=== PATIENT | male | born 1960 | race Caucasian/White ===

== ENCOUNTER 2024-10-26 20:02 | Inpatient (IN) | payer OTHER ==
[~2024-10-26] VITALS: Ht 175.3 cm; Wt 79.6 kg
[2024-10-26 20:28] LABS: BASOPHILS ABSOLUTE AUTO 0.10 K/mm3 (0.00-0.23); BASOPHILS PERCENT AUTO 1 % (0-2); EOSINOPHILS ABSOLUTE AUTO 0.03 K/mm3 (0.00-0.68); EOSINOPHILS PERCENT AUTO 0 % (0-6); Hematocrit 43.6 % (37.0-53.0); Hemoglobin 14.9 g/dL (13.5-17.5); IMMATURE GRAN ABSOLUTE AUTO 0.19 K/mm3 (0.00-0.10); IMMATURE GRAN PERCENT AUTO 1 % (0-1); LYMPHOCYTES ABSOLUTE AUTO 0.87 K/mm3 (0.84-5.20); LYMPHOCYTES PERCENT AUTO 6 % (21-46); MONOCYTES ABSOLUTE AUTO 1.52 K/mm3 (0.16-1.47); MONOCYTES PERCENT AUTO 10 % (4-13); Mean Corpuscular HGB Conc 34.2 g/dL (31.5-36.5); Mean Corpuscular Volume 85 fL (80-100); NEUTROPHILS ABSOLUTE AUTO 13.07 K/mm3 (1.96-9.15); NEUTROPHILS PERCENT AUTO 83 % (41-73); NRBC ABSOLUTE 0.00 K/mm3 (0.00-0.02); NRBC Auto 0.0 /100 WBC (0.0-0.2); Platelet Count 260 K/mm3 (150-400); RDW Coefficient Variation 12.6 % (11.7-14.2); RDW Standard Deviation 39.5 fL (35.1-46.3)
[2024-10-26 20:54] LABS: Alanine Aminotransfer (ALT/SGP 42.0 U/L (12-78); Albumin, Blood 2.6 g/dL (3.4-5.0); Albumin/Globulin Ratio 0.5 (0.8-1.8); Anion Gap 14.0 mmol/L (3-11); Aspartate Aminotrans (AST/SGOT 30.0 U/L (12-37); Bilirubin, Total 0.4 mg/dL (0.1-1.0); Blood Urea Nitrogen 14.0 mg/dL (8-24); CO2, Blood 21.0 mmol/L (21-32); Calcium, Blood 8.4 mg/dL (8.5-10.1); Chloride, Blood 93.0 mmol/L (98-108); Creatinine, Blood 0.78 mg/dL (0.60-1.20); Globulin, Blood 4.8 g/dL (2.2-4.0); Glucose, Blood 352.0 mg/dL (70-99); Potassium, Blood 4.1 mmol/L (3.5-5.5); Sodium, Blood 124.0 mmol/L (136-145); Total Protein, Blood 7.4 g/dL (6.4-8.2)
[2024-10-26] MEDS ORDERED: CefTRIAXone Sodium 1,000 MG in NS 100 ML IV ONE (22:25)
[2024-10-26] MEDS ORDERED: Insulin Glargine-Yfgn 100 Unit/mL 3 ML SYR SC SCH (23:00)
[2024-10-26] MEDS ORDERED: NS 1,000 ML IV SCH (23:00)
[2024-10-26] MEDS ORDERED: Ondansetron HCl 2 MG / ML 2ML Vial IV PRN (23:00)
[2024-10-26] MEDS ORDERED: Ketorolac Tromethamine 15mg Vial IV PRN (23:10)
[2024-10-26] MEDS ORDERED: NS 1,000 ML IV ONE (23:41)
[2024-10-26 23:44] LABS: U Amphetamine Screen Not Detected; U Barbituate Screen Not Detected; U Benzodiazapine Screen Not Detected; U Buprenorphine Screen Not Detected; U Cannabinoids Screen DETECTED; U Cocaine Screen Not Detected; U Methadone Screen Not Detected; U Methamphetamine Screen Not Detected; U Opiates Screen Not Detected; U Oxycodone Screen Not Detected; U Phencyclidine Screen Not Detected
[2024-10-27] VITALS (7 sets, daily range): BP systolic 121–142; BP diastolic 86–100
[2024-10-27] MEDS ORDERED: CeFAZolin Sodium 1,000 MG in NS 50 ML IV SCH
[2024-10-27] MEDS ORDERED: Aspir 8181 MG PO (00:55)
--- NOTE | 2024-10-27 01:22 | NUR ---
ADMIT SUMMARY RECEIVED REPORT FROM GEMINI IN ER. PT ARRIVED TO ROOM 347 AT 0042 AND WAS ABLE TO TRANSFER TO BED. WEIGHT AND PICTURES OF WOUNDS OBTAINED. WARM BLANKET APPLIED AND PAIN MEDS GIVEN PER EMAR PER PT REQUEST. TELE APPLIED AND PT CURRENTLY IN AFIB AT 94. INSULIN GIVEN PER ORDERS. NS INFUSING AT 125 ML PER HOUR. PT RESTING COMFORTABLY IN HOSPITAL BED IN LOWEST POSITION WITH RAILS X2 AND CALL LIGHT WITHIN REACH.
--- NOTE | 2024-10-27 04:13 | NUR ---
SHIFT SUMMARY PT ADMITTED WITH SIRS. A&OX4. ABLE TO MAKE NEEDS KNOWN. ARRIVED TO FLOOR AND ORIENTED TO ROOM AND STAFF. IV INFUSING NS @ 125 MLS AN HOUR. REPORTS PAIN ALL OVER BODY. WARM BLANKET APPLIED AND PT MEDICATED PER EMAR. PT IS SBA WITH TRANSFERS BUT USES THE URINAL FOR COMFORT AND SAFEY. ON TELE WITH AFIB @ 94. DENIES CHEST PAIN OR SOB. TROPONIN REMAINS STABLE. PT CURRENTLY RESTING IN BED AT LOWEST POSITION WITH RAILS X 2 AND CALL LIGHT WITHIN REACH.
[2024-10-27 05:59] LABS: BASOPHILS ABSOLUTE AUTO 0.06 K/mm3 (0.00-0.23); BASOPHILS PERCENT AUTO 0 % (0-2); EOSINOPHILS ABSOLUTE AUTO 0.06 K/mm3 (0.00-0.68); EOSINOPHILS PERCENT AUTO 0 % (0-6); Hematocrit 40.3 % (37.0-53.0); Hemoglobin 13.6 g/dL (13.5-17.5); IMMATURE GRAN ABSOLUTE AUTO 0.24 K/mm3 (0.00-0.10); IMMATURE GRAN PERCENT AUTO 2 % (0-1); LYMPHOCYTES ABSOLUTE AUTO 1.22 K/mm3 (0.84-5.20); LYMPHOCYTES PERCENT AUTO 9 % (21-46); MONOCYTES ABSOLUTE AUTO 1.68 K/mm3 (0.16-1.47); MONOCYTES PERCENT AUTO 12 % (4-13); Mean Corpuscular HGB Conc 33.7 g/dL (31.5-36.5); Mean Corpuscular Volume 86 fL (80-100); NEUTROPHILS ABSOLUTE AUTO 11.14 K/mm3 (1.96-9.15); NEUTROPHILS PERCENT AUTO 77 % (41-73); NRBC ABSOLUTE 0.00 K/mm3 (0.00-0.02); NRBC Auto 0.0 /100 WBC (0.0-0.2); Platelet Count 229 K/mm3 (150-400); RDW Coefficient Variation 12.9 % (11.7-14.2); RDW Standard Deviation 40.5 fL (35.1-46.3)
[2024-10-27 06:43] LABS: Magnesium, Blood 1.9 mg/dL (1.6-2.4); Thyroid Stimulating Hormone 0.414 uIU/mL (0.360-4.800)
[2024-10-27 06:44] LABS: Osmolality, Serum 286.0 mos/KG (275-300)
[2024-10-27 06:52] LABS: Alanine Aminotransfer (ALT/SGP 52.0 U/L (12-78); Albumin, Blood 2.2 g/dL (3.4-5.0); Albumin/Globulin Ratio 0.5 (0.8-1.8); Anion Gap 15.0 mmol/L (3-11); Aspartate Aminotrans (AST/SGOT 52.0 U/L (12-37); Bilirubin, Total 0.3 mg/dL (0.1-1.0); Blood Urea Nitrogen 17.0 mg/dL (8-24); CO2, Blood 21.0 mmol/L (21-32); Calcium, Blood 8.3 mg/dL (8.5-10.1); Chloride, Blood 98.0 mmol/L (98-108); Creatinine, Blood 0.82 mg/dL (0.60-1.20); Globulin, Blood 4.4 g/dL (2.2-4.0); Glucose, Blood 252.0 mg/dL (70-99); Potassium, Blood 4.3 mmol/L (3.5-5.5); Sodium, Blood 130.0 mmol/L (136-145); Total Protein, Blood 6.6 g/dL (6.4-8.2)
[2024-10-27] MEDS ORDERED: Insulin Human Lispro 100 Units/ML 3ML Syringe SC SCH (07:30)
[2024-10-27] MEDS ORDERED: Lactobacil 2-S.Thermo-Bifido 1 1 Cap PO SCH (09:00)
[2024-10-27] MEDS ORDERED: Enoxaparin 40 MG/0.4 ML SYR SC SCH (09:00)
[2024-10-27 09:54] LABS: Source, Urine Clean Catch
[2024-10-27 10:01] LABS: Bilirubin, Urine Neg (Neg); Color, Urine Yellow (P-Yellow); Glucose Qualitative, Urine 4+ (Neg); Ketones, Urine 3+ (Neg); Leukocyte Esterase, Urine 2+ (Neg); Protein, Urine 3+ (Neg); Specific Gravity, Urine 1.020 (1.003-1.022); Urobilinogen, Urine NORM (Normal)
[2024-10-27 10:07] LABS: White Blood Cells, Urine 25-50 /hpf (0-5)
[2024-10-27] MEDS ORDERED: Polyethylene Glycol 3350 17 gm PO PRN (12:45)
[2024-10-27] MEDS ORDERED: Phenylephrine HCl 100 MCG/ML-NS 10MLSYR (1MG/10ML) IV ONE (14:49)
[2024-10-27] MEDS ORDERED: MetFORMIN HCl 500 mg PO SCH (17:00)
[2024-10-27] MEDS ORDERED: Vancomycin (Pharmacy Consult) IV SCH (20:40)
[2024-10-27] MEDS ORDERED: Docusate Sodium/Senna 1 Tab PO SCH (21:00)
[2024-10-27] MEDS ORDERED: NS 250 ML IV PRN (21:55)
--- NOTE | 2024-10-27 22:25 | NUR ---
RECEIVED LAB RESULTS FROM LAB. CALL HOSPITALIST. NEW ORDERS RECEIVED TO START VANCOMYCIN.
--- NOTE | 2024-10-28 01:10 | NUR ---
PT REPORTED CHEST PAIN. TELE REPORTED NS W BBB WITH OCCASIONAL PACS @ 79. CALLED AND INFORMED HOSPITALIST AND HE ORDERED AN EKG AND TROPONIN NOW AND AGAIN IN 2 HOURS. FIRST TROPONIN WNL. PT REPORTS CHEST PAIN HAS NOW RESOLVED WELL.
[2024-10-28 02:17] LABS: Hematocrit 38.4 % (37.0-53.0); Hemoglobin 12.9 g/dL (13.5-17.5); Mean Corpuscular HGB Conc 33.6 g/dL (31.5-36.5); Mean Corpuscular Volume 87 fL (80-100); NRBC ABSOLUTE 0.00 K/mm3 (0.00-0.02); NRBC Auto 0.0 /100 WBC (0.0-0.2); Platelet Count 266 K/mm3 (150-400); RDW Coefficient Variation 13.0 % (11.7-14.2); RDW Standard Deviation 41.1 fL (35.1-46.3)
[2024-10-28 02:35] LABS: Albumin, Blood 2.1 g/dL (3.4-5.0); Anion Gap 8 mmol/L (3-11); Blood Urea Nitrogen 24 mg/dL (8-24); CO2, Blood 24 mmol/L (21-32); Calcium, Blood 8.2 mg/dL (8.5-10.1); Chloride, Blood 103 mmol/L (98-108); Creatinine, Blood 0.89 mg/dL (0.60-1.20); Glucose, Blood 156 mg/dL (70-99); Magnesium, Blood 2.1 mg/dL (1.6-2.4); Phosphorus, Blood 3.1 mg/dL (2.5-4.9); Potassium, Blood 4.0 mmol/L (3.5-5.5); Sodium, Blood 131 mmol/L (136-145)
--- NOTE | 2024-10-28 04:07 | NUR ---
SHIFT SUMMARY PT ADMITTED FOR SIRS WITH CONCERN FOR SEPSIS. A&OX4. ABLE TO MAKE ALL NEEDS KNOWN. PAIN CONTINUES AND PT MEDICATED PER EMAR PER REQUEST. BLOOD CULTURE RECEIVED SHOWING GRAM + COCCI WITH CLUSTERS. VANCO STARTED VIA IV PER ORDERS. TELE RHYTHM CHANGE FROM AFIB W RVR ON ADMISSION TO NS @ 79 WITH BBB W OCCASIONAL PACS. PT ALSO REPORTED CHEST PAIN. HOSPITALIST INFORMED AND EKG PERFORMED AND TROPONIN DRAWN X2. TROPONINS WNL X 2. EKG ABNORMAL BUT STABLE AT THIS TIME. CHEST PAIN RESOLVED PER PT. PT ABLE TO REST THROUGHOUT THE NIGHT AND IS CURRENTLY SLEEPING IN BED IN LOWEST POSITION WITH SIDE RAILS X2 AND CALL LIGHT WITHIN REACH.
[2024-10-28 05:27] VITALS: BP 123/82
[2024-10-28 07:44] VITALS: BP 151/104
[2024-10-28] MEDS ORDERED: HYDROcodone 5-APAP 325 TAB PO PRN (11:20)
[2024-10-28 12:07] VITALS: BP 131/91
[2024-10-28 15:23] VITALS: BP 132/100
[2024-10-28 19:51] VITALS: BP 133/91
[2024-10-29 00:11] VITALS: BP 103/68
[2024-10-29 04:29] VITALS: BP 116/74
--- NOTE | 2024-10-29 05:01 | NUR ---
SHIFT SUMMARY A&OX4. ABLE TO MAKE ALL NEEDS KNOWN. LEFT FOREARM ABCESS DRAINING. WARM COMPRESS APPLIED. PT HAD PAIN THROUGHOUT SHIFT AND MEDICATED PER EMAR AND WARM BLANKETS APPLIED TO HELP WITH PAIN MANAGEMENT. PT AMBULATES TO RESTROOM INDEPENDENTLY. PT RESTING IN BED IN LOWEST POSITION WITH RAILS X2 AND CALL LIGHT WITHIN REACH.
[2024-10-29 07:11] VITALS: BP 137/97
[2024-10-29 09:19] LABS: Hematocrit 41.0 % (37.0-53.0); Hemoglobin 13.9 g/dL (13.5-17.5); Mean Corpuscular HGB Conc 33.9 g/dL (31.5-36.5); Mean Corpuscular Volume 87 fL (80-100); NRBC ABSOLUTE 0.00 K/mm3 (0.00-0.02); NRBC Auto 0.0 /100 WBC (0.0-0.2); Platelet Count 315 K/mm3 (150-400); RDW Coefficient Variation 13.2 % (11.7-14.2); RDW Standard Deviation 42.5 fL (35.1-46.3)
[2024-10-29 09:36] LABS: Albumin, Blood 2.3 g/dL (3.4-5.0); Anion Gap 9 mmol/L (3-11); Blood Urea Nitrogen 18 mg/dL (8-24); CO2, Blood 26 mmol/L (21-32); Calcium, Blood 8.3 mg/dL (8.5-10.1); Chloride, Blood 100 mmol/L (98-108); Creatinine, Blood 0.80 mg/dL (0.60-1.20); Glucose, Blood 130 mg/dL (70-99); Magnesium, Blood 2.0 mg/dL (1.6-2.4); Phosphorus, Blood 3.6 mg/dL (2.5-4.9); Potassium, Blood 3.9 mmol/L (3.5-5.5); Sodium, Blood 131 mmol/L (136-145)
[2024-10-29 09:38] LABS: Vancomycin, Trough 12.4 ug/mL (5.0-10.0)
[2024-10-29] MEDS ORDERED: HYDROcodone 5-APAP 325 TAB PO PRN (10:29)
[2024-10-29 16:57] VITALS: BP 144/94
--- NOTE | 2024-10-29 18:17 | NUR ---
SHIFT SUMMARY PT A&OX4. PT ADMITTED DUE TO SIRS. PT REPORTS NO CHEST PAIN SOB. VSS. PT REPORTS ALL OVER PAIN. PAIN MANAGED PER EMAR. PT INDEPENDENT IN ROOM. PT IS ACHS BLOOD SUGARS. NO COVERAGE INDICATED FOR MEALS TODAY. PT ON TELE, NO TELE REPORTS. REPORTED TO TWILA HENRIQUEZ ABOUT REPORT OF BBB. DR. MATTSON REPORTED PT WILL HAVE 4-6 WEEKS OF IV ANTIBIOTICS DUE TO INFECTION. DR. SAMAYOA CONSULTED TODAY DUE TO LFA OPEN WOUND. DR. CROCKER REPORTED "HAVE PT NPO AT MIDNIGHT AND WILL BE SEEN BY JOHN TOMORROW. PT IN BED, BED IN LOWEST POSITION, CALL LIGHT IN REACH. PT CALLS APPROPRIATELY.
[2024-10-29 19:58] VITALS: BP 149/91
[2024-10-30 00:02] VITALS: BP 144/99
[2024-10-30 03:27] VITALS: BP 131/93
--- NOTE | 2024-10-30 04:23 | NUR ---
SHIFT SUMMARY PATIENT HAS BEEN SLEEPING INTERMITTANTLY DURING THE NIGHT. NPO FOR AM PROCEDURE. IV VANCOMYCIN INFUSED WITHOUT COMPLICATIONS. ALERT AND ORIENTED X4 WITH CALL LIGHT WITHIN REACH. SAFETY PRECAUTIONS ARE BEING MAINTAINED.
[2024-10-30 07:42] VITALS: BP 149/98
--- NOTE | 2024-10-30 09:27 | NUR ---
NOTE PT A&OX4. PT VOICED CONCERN ABOUT BEING NPO NOT KNOWING WHEN SURGERY WILL HAPPEN. CALLED DAY SURG X2 GOT VOICEMAIL. TOLD SQUASH CENTRE MANAGER. PT SCREAMING AT STAFF "I NEED FOOD, IM NOT SCHEDULED FOR SURGERY. IM NOT WAITING." THIS RN REMINDED PT "DR. SAMAYOA REPORTED YEST PT WILL BE NPO AT MIDNIGHT AND BE ON DR. LOPEZ LIST TODAY." THIS RN EDUCATED PT ON IMPORTANCE OF BEING NPO PRIOR TO SURGERY AND THAT IT WILL DELAY PROCEDURE IF HE EATS." CALLED DR. LOPEZ TWICE AND GOT ANSWERING SERVICE. THIS RN GAVE PT BREAKFAST TRAY. DR. MATTSON NOTIFIED
[2024-10-30] MEDS ORDERED: FentaNYL Citrate 50 MCG/ML 2 ML Injection IV PRN (09:40)
[2024-10-30] MEDS ORDERED: Lidocaine 2%-Epineph 1:100000 20 ML MDV XX SCH (11:25)
--- NOTE | 2024-10-30 11:36 | NUR ---
NOTE DR. LOPEZ GAVE VERBAL ORDER OF A ONE TIME DOSE OF LIDOCAINE W EPI FOR POSSIBLE I&D AT BEDSIDE. AWAITING MED FROM PHARMACY AND DR. LOPEZ TO ROUND ON PT.
[2024-10-30 12:00] VITALS: BP 140/95
[2024-10-30 15:51] VITALS: BP 148/95
--- NOTE | 2024-10-30 16:36 | NUR ---
NOTE PT HAS NORCO ORDERED Q4 HR PRN. PT STATES BEING UPSET BECAUSE ITS NOT AROUND THE CLOCK. YELLING AT THIS RN. EDUCATED PT ON PAIN MANAGEMENT. DR. MATTSON ORDERED FENT. FOR BREAKTHROUGH PAIN EARLIER THIS SHIFT. THIS RN ASKED PT SEVERAL TIMES THROUGH SHIFT "HOW HIS PAIN IS AND IF PT NEEDS TYLENOL OR SOMETHING FOR BREAKTHROUGH PAIN." PT REFUSED THROUGH SHIFT. DISCUSSED WITH LUNCHROOM MOTHER. PT RECEIVED DOSE OF NORCO AT 1630. WILL LET NIGHT RN TO EDUCATE PT ON PAIN MANAGEMENT AND WHEN NEXT NORCO IS DUE.
--- NOTE | 2024-10-30 16:41 | NUR ---
SHIFT SUMMARY PT A&OX4. PT STOPPED SCREAMING AT STAFF ONCE ABLE TO EAT. PT ADMITTED DUE TO SIRS. PT REPORTS NO CHEST PAIN/SOB. PT REPORTS PAIN ALL OVER . PAIN MANAGED PER EMAR. DR. MATTSON ADDED FENT TO EMAR FOR BREAKTHROUGH PAIN. PT INDEPENDENT IN ROOM. PT IS ACHS BLOOD SUGARS. COVERAGE INDICATED ONLY FOR LUNCH. PT EATS ADEQUATE. PT CONT OF URINE AND BM. PT ON TELE, NO TELE REPORTS. DR LOPEZ CAME FOR CONSULT. PASSED ON TO DR. MATTSON, DR. LOPEZ REPORTED NO NEED FOR I&D ON LFA ABSESS. PT IN BED, BED IN LOWEST POSITION, CALL LIGHT IN REACH.
[2024-10-30 19:27] VITALS: BP 135/88
[2024-10-31 00:34] VITALS: BP 142/93
--- NOTE | 2024-10-31 03:15 | NUR ---
SHIFT SUMMARY PATIENT HAS BEEN SLEEPING INTERMITTANTLY BETWEEN NURSING INTERVENTIONS. VITAL SIGNS HAVE BEEN STABLE. PATIENT HAS BEEN MEDICATED FOR PAIN X2 ON THIS SHIFT SO FAR. IV VANCOMYCIN INFUSED WITHOUT COMPLICATIONS. PATIENT IS ORIENTED X4. HE HAS HIS CALL LIGHT WITHIN REACH. SAFETY PRECAUTIONS ARE BEING MAINTAINED.
[2024-10-31 04:24] VITALS: BP 154/100
[2024-10-31 07:42] VITALS: BP 165/120
[2024-10-31 09:07] LABS: Vancomycin, Trough 23.5 ug/mL (5.0-10.0)
[2024-10-31 15:09] VITALS: BP 154/98
[2024-10-31 19:43] VITALS: BP 147/96
[2024-10-31] MEDS ORDERED: Insulin Glargine-Yfgn 100 Unit/mL 3 ML SYR SC SCH (21:00)
--- NOTE | 2024-11-01 03:24 | NUR ---
SHIFT SUMMARY PATIENT HAS BEEN SLEEPING INTERMITTANTLY THROUGHOUT THE NIGHT. HE HAS BEEN MEDICATED FOR PAIN X2 ON THIS SHIFT SO FAR. ORIENTED X4 WITH HIS CALL LIGHT WITHIN REACH. IV ABX HAVE IINFUSED WITHOUT COMPLICATIONS. SAFETY PRECAUTIONS ARE BEING MAINTAINED.
[2024-11-01 03:48] VITALS: BP 130/90
[2024-11-01 07:52] VITALS: BP 140/109
[2024-11-01 11:56] LABS: Hematocrit 42.3 % (37.0-53.0); Hemoglobin 14.0 g/dL (13.5-17.5); Mean Corpuscular HGB Conc 33.1 g/dL (31.5-36.5); Mean Corpuscular Volume 88 fL (80-100); NRBC ABSOLUTE 0.00 K/mm3 (0.00-0.02); NRBC Auto 0.0 /100 WBC (0.0-0.2); Platelet Count 427 K/mm3 (150-400); RDW Coefficient Variation 13.2 % (11.7-14.2); RDW Standard Deviation 42.3 fL (35.1-46.3)
[2024-11-01 12:03] LABS: Anion Gap 7.0 mmol/L (3-11); Blood Urea Nitrogen 3.0 mg/dL (8-24); CO2, Blood 26.0 mmol/L (21-32); Calcium, Blood 8.6 mg/dL (8.5-10.1); Chloride, Blood 103.0 mmol/L (98-108); Creatinine, Blood 0.77 mg/dL (0.60-1.20); Glucose, Blood 260.0 mg/dL (70-99); Potassium, Blood 4.1 mmol/L (3.5-5.5); Sodium, Blood 132.0 mmol/L (136-145)
[2024-11-01 12:18] LABS: Prothrombin Time Results 11.1 Sec (9.7-11.5)
[2024-11-01 15:45] VITALS: BP 133/102
[2024-11-01] MEDS ORDERED: Insulin Regular 100 UNIT/ML 10ML Vial SC SCH (16:30)
--- NOTE | 2024-11-01 19:10 | NUR ---
NO CHANGES, CALL LIGHT WITH IN REACH
[2024-11-01 20:14] VITALS: BP 146/101
[2024-11-02] VITALS (25 sets, daily range): BP systolic 56–162; BP diastolic 45–115
--- NOTE | 2024-11-02 03:06 | NUR ---
SHIFT SUMMARY PATIENT HAS BEEN SLEEPING INTERMITTANTLY BETWEEN NURSING CARE. HE HAS BEEN NPO FOR AM PADILLA. PATIENT IS ORIENTED X4. HE HAS HIS CALL LIGHT WITHIN REACH. SAFETY PRECAUTIONS ARE BEING MAINTAINED.
[2024-11-02] MEDS ORDERED: NS 1,000 ML IV ONE (08:29)
[2024-11-02] MEDS ORDERED: Benzocaine Oral Spray 0.5ML UD ONE (09:09)
--- NOTE | 2024-11-02 10:14 | NUR ---
PT TOLERATED PADILLA WELL. PT DRANK WATER WITH NO ASPIRATION. PT WILL BE TRANSFERED BACK TO MEDICAL FLOOR IN WHEELCHAIR.
--- NOTE | 2024-11-02 18:21 | NUR ---
SHIFT SUMMARY PT A&OX4, VSS, AMB IND, TOLERATING PO, VOIDING, AND GENERALIZED PAIN MANAGED PER EMAR. PT HAD PADILLA PROCEDURE THIS SHIFT. BLOOD CULTURE POSITIVE. NO OTHER ACUTE CHANGES. CALL LIGHT WITHIN REACH AND PT ABLE TO MAKE NEEDS KNOWN.
[2024-11-02 20:43] LABS: Vancomycin, Trough 15.6 ug/mL (5.0-10.0)
[2024-11-02] MEDS ORDERED: Insulin Glargine-Yfgn 100 Unit/mL 3 ML SYR SC SCH (21:00)
--- NOTE | 2024-11-03 04:34 | NUR ---
Shift Summary AOx4. Medicated for 8/10 generalized pain w/ fentanyl and norco per EMAR with good effect. Up ad sergo to the bathroom. Had a half sandwich just right before bedtime. Blood cultures remain positive for gram (+) cocci in clusters. Denies headache, n/v, shortness of breath. Overall, uneventful night.
[2024-11-03 05:26] VITALS: BP 175/116
[2024-11-03 07:08] VITALS: BP 142/100
[2024-11-03 07:44] VITALS: BP 133/86
--- NOTE | 2024-11-03 16:48 | NUR ---
SHIFT SUMMARY: A&OX4 THIS SHIFT. COOPERATIVE WITH CARE PROVIDED. PT AMBULATES INDEPENDENTLY IN ROOM. MEDICATED FOR PAIN PER EMAR. VSS. NO ACUTE CHANGES OR EVENTS THIS SHIFT. ABLE TO MAKE NEEDS KNOWN. IN BED AT THIS TIME. CALL LIGHT WITHIN REACH.
[2024-11-03 17:05] VITALS: BP 144/92
[2024-11-03 19:29] VITALS: BP 139/100
--- NOTE | 2024-11-03 23:10 | NUR ---
[facility] CALLS TO GIVE REPORT OF FINDINGS FROM CT. MASS VS MALIGNANCY ON PROSTATE. THIS INFORMATION PASSED ALONG TO DR SHAH.
--- NOTE | 2024-11-03 23:11 | NUR ---
RADIALOGIST DR CASTRO
[2024-11-04 02:00] LABS: Source, Urine Clean Catch
[2024-11-04 02:18] LABS: Bilirubin, Urine Neg (Neg); Glucose Qualitative, Urine 4+ (Neg); Ketones, Urine Neg (Neg); Leukocyte Esterase, Urine Neg (Neg); Protein, Urine Neg (Neg); Specific Gravity, Urine 1.010 (1.003-1.022); Urobilinogen, Urine NORM (Normal)
[2024-11-04 02:23] LABS: Color, Urine Pale Yellow (P-Yellow)
[2024-11-04 03:25] VITALS: BP 131/92
--- NOTE | 2024-11-04 04:57 | NUR ---
SHIFT SUMMARY PT HERE FOR SEPSIS. HE HAS BEEN RESTING IN BED COMFORTABLY OVERNIGHT. PT HAS BEEN AOX4, CALM AND COOPERATIVE. HE HAS CALLED APPROPRIATELY OVERNIGHT. PT HAS BEEN INDEPENDENT AMBULATING IN . HE HAS C/O GENERALIZED PAIN OVERNIGHT, W/ REST AND MEDICATIONS RELIEVING IT. PT WENT TO CT SCAN AT APPROX 2200, AND RECIEVED CRITICAL RESULT FROM RADIOLOGY (SEE NOTES), HOSPITALIST WAS MADE AWARE. PT HAS OTHERWISE HAD NO COMPLAINTS OVERNIGHT. PT HAD UNEVENTFUL NIGHT.
[2024-11-04 05:39] LABS: Hematocrit 40.9 % (37.0-53.0); Hemoglobin 13.6 g/dL (13.5-17.5); Mean Corpuscular HGB Conc 33.3 g/dL (31.5-36.5); Mean Corpuscular Volume 88 fL (80-100); NRBC ABSOLUTE 0.00 K/mm3 (0.00-0.02); NRBC Auto 0.0 /100 WBC (0.0-0.2); Platelet Count 445 K/mm3 (150-400); RDW Coefficient Variation 13.4 % (11.7-14.2); RDW Standard Deviation 43.4 fL (35.1-46.3)
[2024-11-04 06:30] LABS: Anion Gap 9.0 mmol/L (3-11); Blood Urea Nitrogen 22.0 mg/dL (8-24); CO2, Blood 25.0 mmol/L (21-32); Calcium, Blood 8.8 mg/dL (8.5-10.1); Chloride, Blood 102.0 mmol/L (98-108); Creatinine, Blood 0.86 mg/dL (0.60-1.20); Glucose, Blood 168.0 mg/dL (70-99); Potassium, Blood 3.7 mmol/L (3.5-5.5); Sodium, Blood 132.0 mmol/L (136-145)
[2024-11-04 07:21] VITALS: BP 155/101
[2024-11-04] MEDS ORDERED: NS 250 ML IV ONE (14:13)
[2024-11-04 16:00] VITALS: BP 148/99
--- NOTE | 2024-11-04 17:22 | NUR ---
S/P PERCUTANIOUS DRAIN PLACEMENT- PROSTATE ABCESS LEFT FOR IR PROCEDURE WITH DR WATSON AT 1445, RETURNED 1550, PERCUTANIOUS DRAIN PATENT AND DRAINING PURULANT SANG FLUID ONLY IN TUBE, NONE IN BAG. 2 EXTRA SECUREMENT DEVISES SENT. VSS. TEMP 102.4, MEDICATED WITH NORCO AND TYLENOL. REPEAT BLOOD CX DRAWN EARLIER TODAY. PT HAD LOCAL AND NO SEDATIVE. PT IS AWAKE AND HAPPY, VERBAL AND WANTNING TO EAT. TOLERATED A REGULAR MEAL. WILL F/U WITH TEMP AND CALL IF REMAINS ELEVATED
[2024-11-04 19:37] VITALS: BP 124/85
--- NOTE | 2024-11-04 20:12 | NUR ---
SUMMARY- PT A/O X4, INDEP IN ROOM. HAD PERCUTANIOUS DRAIN PLACED DR WATSON THIS AFTERNOON UNDER LOCAL.STATED THAT 6-8ML OF DRAINAGE ASPIRATED AND SENT TO LAB FOR CX. DRAIN R ISCHIUM INTACT, PURULANT SANG NOTED HALF WAY DOWN TUBING BUT NOT IN BAG YET. AT END OF SHIFT, DRAINAGE HAS REACHED END OF TUBING. SECUREMENT DEVICE SECUCRE AND TUBE MARKED AT INS SITE TO GUARANTEE PLACEMENT. PT CAME BACK TO ROOM AND TEMP 102.4. MEDICATED WITH PAIN PILL AND TYLENOL. TEMP CAME BACK DOWN NICELY. CALLED DR MATTSON EARLIER ABOUT 2ND POSITIVE BLOOD CX, AND ORDERED ANOTHER BLOOD CX, SO DID NOT CALL WITH ISOLATED FEVER THAT CORRECTED. PT TOLERATING FOOD AND FLUID. BACK PAIN IS CONTROLLED WITH NORCO Q4-5- MRI WAS HELD BECAUSE OF IR PROCEDURE AND NOW THE SOURSE OF INFECTION LIKELY FOUND, DR ANGLIN LIKELY DC MRI. REPORTED OFF TO VIRA AREVALO RN
[2024-11-05 03:00] VITALS: BP 133/88
--- NOTE | 2024-11-05 06:32 | NUR ---
SHIFT SUMMARY PT HERE FOR SEPSIS. HE HAS BEEN RESTING IN BED COMFORTABLY OVERNIGHT. PT HAS BEEN AOX4, CALM AND COOPERATIVE. HE HAS CALLED APPROPRIATELY OVERNIGHT. HE IS INDEPENDENT AMBULATING IN . PT HAD PROSTATE ABCESS DRAIN PLACED YESTERDAY W/ MINIMAL DRAINAGE. EDUCATED PT TO BE CAREFUL WHEN UP OOB BC OF DRAIN. PT HAS VERBALIZED UNDERSTANDING. PT HAS C/O GENERALIZED PAIN OVERNIGHT, W/ REST AND MEDICATIONS RELIEVING IT. PT HAS HAD NO OTHER COMPLAINTS, AND NO ACUTE EVENTS OVERNIGHT.
[2024-11-05 07:29] VITALS: BP 119/83
[2024-11-05 08:42] LABS: Vancomycin, Trough 17.8 ug/mL (5.0-10.0)
[2024-11-05 15:36] LABS: Hematocrit 41.8 % (37.0-53.0); Hemoglobin 13.6 g/dL (13.5-17.5); Mean Corpuscular HGB Conc 32.5 g/dL (31.5-36.5); Mean Corpuscular Volume 88 fL (80-100); NRBC ABSOLUTE 0.00 K/mm3 (0.00-0.02); NRBC Auto 0.0 /100 WBC (0.0-0.2); Platelet Count 498 K/mm3 (150-400); RDW Coefficient Variation 13.5 % (11.7-14.2); RDW Standard Deviation 43.7 fL (35.1-46.3)
[2024-11-05 15:47] LABS: Anion Gap 8.0 mmol/L (3-11); Blood Urea Nitrogen 21.0 mg/dL (8-24); CO2, Blood 28.0 mmol/L (21-32); Calcium, Blood 9.2 mg/dL (8.5-10.1); Chloride, Blood 104.0 mmol/L (98-108); Creatinine, Blood 1.09 mg/dL (0.60-1.20); Glucose, Blood 119.0 mg/dL (70-99); Magnesium, Blood 2.1 mg/dL (1.6-2.4); Potassium, Blood 4.3 mmol/L (3.5-5.5); Sodium, Blood 136.0 mmol/L (136-145)
[2024-11-05 15:55] VITALS: BP 154/99
--- NOTE | 2024-11-05 17:12 | NUR ---
SHIFT SUMMARY NO ACUTE CHANGES, FULL CODE, A/Ox4, INDEPENDENT IN ROOM. ABLE TO MAKE NEEDS KNOWN. MRI OF SPINE COMPLETED TODAY. GOOD ORAL INTAKE. TREATED FOR PAIN PER EMAR. POWERGLIDER INSERTED INTO HARVINDER. R PIV INFILTRATED WHILE VANCO RUNNING, PT DENIES PAIN AND SWELLING IMPROVING WITH NO REDNESS NOTED. INSULIN ADMINISTERED PER SLIDING SCALE. PT CURRENTLY RESTING IN BED WITH BED IN LOWEST POSITION AND CALL LIGHT WITHIN REACH.
[2024-11-05 19:36] VITALS: BP 140/105
--- NOTE | 2024-11-05 23:29 | NUR ---
HOSPITALIST CONTACT PT CALLED RN TO ROOM FOR PAIN MED REQUEST. PT WAS AGITATED AND YELLING AT THIS RN. PT CAN HAVE NORCO 5/325 Q4PRN. 4 HOURS HAD NOT YET LAPSED (EDUCATED PT EARLIER ON NEXT AVAILABLE PAIN MED AND PT STATED HE UNDERTSOOD. PT APOLOGETIC FOR BEHAVIOR. PT FEELS PAIN IS NOT BEING CONTROLLED. NEVER LESS THAN A 7 AND FEEL FRUSTRATED. ADVISED WOULD BRING NEXT AVAILABLE MED AND CALL DR TO REQUEST ADDITIONAL PAIN MANAGEMENT. NORCO GIVEN AT 2319. CALL TO HOSPTIAL. SPOKE TO [facility]. ADVISED OF THE SITUATION. NEW ORDER FROM [facility] TO UP FREQUENCY TO Q2PRN, NORCO 5/325. WENT BACK TO PT ROOM TO ADVISE OF CHANGE IN ORDER. PT REQUESTED I GIVE HIM HIS PAIN MED NOW. ADVISED PT WAS JUST GIVEN MED AT 2319 AND CAN HAVE IT IN 2 HOURS. PT AGREEABLE.
[2024-11-05] MEDS ORDERED: HYDROcodone 5-APAP 325 TAB PO PRN (23:45)
--- NOTE | 2024-11-06 00:42 | NUR ---
NURSES NOTE ASSUMING CARE OF PATIENT AT THIS TIME SHIFT REPORT HAS BEEN GIVEN. PATIENT IS AWAKE AT THIS TIME. ALERT AND ORIENTED X4. DRAIN IS PATENT AND DRAINING SMALL AMOUNT OF BLOODY DRAINAGE. CALL LIGHT IS WITHIN REACH. SAFETY PRECAUTIONS ARE BEING MAINTAINED.
[2024-11-06 03:18] VITALS: BP 127/85
--- NOTE | 2024-11-06 03:29 | NUR ---
SHIFT SUMMARY PATIENT HAS BEEN SLEEPING INTERMITTANTLY DURING THE NIGHT. HE HAS BEEN MEDICATED EVERY 2 HOURS WITH NORCO 5 ORDERED BY MD. VITAL SIGNS HAVE BEEN STABLE. PATIENT IS ORIENTED X4. HE HAS HIS CALL LIGHT WITHIN REACH. SAFETY PRECAUTIONS ARE BEING MAINTAINED.
[2024-11-06 07:12] VITALS: BP 153/93
[2024-11-06 15:49] VITALS: BP 142/93
--- NOTE | 2024-11-06 17:22 | NUR ---
SHIFT SUMMARY PT AOX4, COOPERATIVE, ABLE TO MAKE NEEDS KNOWN. PT IS IND IN ROOM. HAS DRAIN PLACED IN BUTTOCKS FOR PROSTATE ABSCESS, DRAINING TO GRAVITY. TOLERATING MEDS. DRAIN SHOULD BE REMOVED IN A FEW DAYS ACCORDING TO UROLOGIST, THEN PT WOULD NEED TO COMPLETE ABOUT A MONTH OF IV ABX. ON ROOM AIR. BED IN LOWEST POSITION, CALL LIGHT WITHIN REACH.
[2024-11-06 19:13] VITALS: BP 140/87
[2024-11-07 03:51] VITALS: BP 139/92
--- NOTE | 2024-11-07 05:14 | NUR ---
PT ALERT AND ORIENTED X4 DURING SHIFT. PATIENT ON ROOM AIR AND UP INDEPENDENTLY IN ROOM. PATIENT GIVEN OXYCODONE FOR PAIN. DRAIN IN PLACE-MINIMAL OUTPUT. PATIENT GIVEN IV ANTIBIOTICS. SHEETS CHANGED. PATIENT ABLE TO MAKE NEEDS KNOWN. CALL LIGHT WITHIN REACH
[2024-11-07 07:21] VITALS: BP 141/99
[2024-11-07 09:46] LABS: Creatinine, Blood 0.87 mg/dL (0.60-1.20); Vancomycin, Trough 19.7 ug/mL (5.0-10.0)
[2024-11-07 16:13] VITALS: BP 164/108
--- NOTE | 2024-11-07 17:52 | NUR ---
SHIFT SUMMARY PT IS A/OX4. INDEPENDENT IN THE ROOM. DRAIN SITE PATENT WITH LITTLE TO NO OUTPUT. PT REPORTING PAIN TO THE DRAIN SITE, MEDICATED PER JUN. CONTINUING ANTIBIOTIC THERAPY. PT'S SISTER AT BEDSIDE THROUGHOUT THIS AFTERNOON. PT IS PLEASANT AND COOPERATIVE WITH CARE AND CALLS APPROPRIATELY USING THE CALL LIGHT.
[2024-11-07 20:04] VITALS: BP 129/95
[2024-11-08 04:46] VITALS: BP 144/96
[2024-11-08] MEDS ORDERED: Insulin Human Lispro 100 Units/ML 3ML Syringe SC SCH (07:30)
[2024-11-08 08:06] VITALS: BP 131/94
[2024-11-08 14:51] VITALS: BP 137/88
--- NOTE | 2024-11-08 17:09 | NUR ---
SHIFT SUMMARY PT IS A/OX4. INDEPENDENT IN THE ROOM. DRAIN WITH NO OUTPUT ASSESSED THIS SHIFT. PT CONTINUES REPORTING PAIN TO THE DRAIN SITE AND SURROUNDING AREA, MEDICATED PER JUN. PT INSTRUCTED AND EDUCATED ON THE IMPORTANCE OF LIMITING AND REDUCING THE PAIN MEDICATION FREQUENCY WHEN POSSIBLE. CONTINUING IV ANTIBIOTICS. PT IS COOPERATIVE WITH CARE AND CALLS APPROPRIATELY USING THE CALL LIGHT.
[2024-11-08 20:28] VITALS: BP 131/88
[2024-11-08 22:15] LABS: Hematocrit 42.0 % (37.0-53.0); Hemoglobin 13.6 g/dL (13.5-17.5); Mean Corpuscular HGB Conc 32.4 g/dL (31.5-36.5); Mean Corpuscular Volume 88 fL (80-100); NRBC ABSOLUTE 0.00 K/mm3 (0.00-0.02); NRBC Auto 0.0 /100 WBC (0.0-0.2); Platelet Count 478 K/mm3 (150-400); RDW Coefficient Variation 13.6 % (11.7-14.2); RDW Standard Deviation 43.8 fL (35.1-46.3)
[2024-11-08 22:40] LABS: Anion Gap 10 mmol/L (3-11); Blood Urea Nitrogen 30 mg/dL (8-24); CO2, Blood 23 mmol/L (21-32); Calcium, Blood 9.1 mg/dL (8.5-10.1); Chloride, Blood 104 mmol/L (98-108); Creatinine, Blood 1.10 mg/dL (0.60-1.20); Glucose, Blood 159 mg/dL (70-99); Potassium, Blood 4.0 mmol/L (3.5-5.5); Sodium, Blood 133 mmol/L (136-145); Vancomycin, Trough 15.3 ug/mL (5.0-10.0)
[2024-11-09 06:06] VITALS: BP 111/84
[2024-11-09 08:15] VITALS: BP 182/102
[2024-11-09 09:10] VITALS: BP 187/102
[2024-11-09 10:39] VITALS: BP 93/70
--- NOTE | 2024-11-09 10:57 | NUR ---
CALLED DR CADENA RE BP CHANGES. NO NEW ORDERS.
[2024-11-09 15:12] VITALS: BP 109/85
--- NOTE | 2024-11-09 18:26 | NUR ---
PT HAD SOME CONCERNS THIS MORNING RE NEEDS BEING MET. DISCUSSED WITH HIM AT LENGTH. DISCUSSED ABILITY TO CALL FOR FILLER PICKER, AND TO TALK TO ROUNDING SUPERVISORS. REFERRED TO [facility] TO SEE PT ALSO. PT IN GOOD CHEER BALANCE OF DAY. SCANT DISCHARGE NOTED AT PRIOR DRAIN SITE DEJA AREA. PT STATES PAIN IMPROVED. SON AND SISTER IN TO VISIT TODAY. NO OTHER NEW CONCERNS NOTED. BED IN LOW POSITION, CALL LITE IN REACH, CALLS APPROP
[2024-11-09 20:12] VITALS: BP 120/97
[2024-11-10 03:19] VITALS: BP 121/85
--- NOTE | 2024-11-10 06:36 | NUR ---
SUMMARY AWAKE, ORIENTED, TALKATIVE IN A GOOD MOOD. APPARENTLY DOESNT SEEM IN PAIN BUT SAID 7-8 WHEN ASKED. KNOWLEDGEABLE AND COOPERATIVE TO CARE. SLEPT WELL AT NIGHT W/O ANY CONCERN. STILL FOR CONTINUITY OF REHAB.
[2024-11-10 07:38] VITALS: BP 123/85
[2024-11-10 16:34] VITALS: BP 128/91
--- NOTE | 2024-11-10 17:22 | NUR ---
SUMMARY- AAOX4. SBA IN ROOM. PT ON RA. PT MEDICATED W/EMAR PAIN MEDS THIS SHIFT FOR GENERALIZED PAIN; RELIEF ACHEIVED PER PT. NO ACUTE EVENTS THIS SHIFT. PT CALM AND COOPERATIVE THIS SHIFT.
[2024-11-10 20:11] VITALS: BP 155/95
--- NOTE | 2024-11-11 04:07 | NUR ---
SHIFT SUMMARY PATIENT HAD NO ACUTE CHANGES. ALERT ORIENTED AND ANXIOUS TALKING TO [id number] ABOUT HIS SON. DENIES CHEST PAIN, SOB, AND N/V. VSS/AFEBRILE. POWERGLIDE RU ARM. CBG 156. IV VANCO INFUSED. REPORTED GENERAL PAIN AND OXYCODONE 10 MG GIVEN PER EMAR. COOPERATIVE WITH CARE. CALL LIGHT IN REACH. BED IN LOWEST POSITION. WILL CONTINUE TO MONITOR UNTIL DAY SHIFT NURSE ASSUMES CARE.
[2024-11-11 04:32] VITALS: BP 129/94
--- NOTE | 2024-11-11 05:49 | NUR ---
PATIENT FEBRILE 100.5 AND TYLENOL 650 MG GIVEN AND RECHECK 97.0
[2024-11-11 06:37] LABS: Hematocrit 38.4 % (37.0-53.0); Hemoglobin 12.8 g/dL (13.5-17.5); Mean Corpuscular HGB Conc 33.3 g/dL (31.5-36.5); Mean Corpuscular Volume 87 fL (80-100); NRBC ABSOLUTE 0.00 K/mm3 (0.00-0.02); NRBC Auto 0.0 /100 WBC (0.0-0.2); Platelet Count 405 K/mm3 (150-400); RDW Coefficient Variation 13.5 % (11.7-14.2); RDW Standard Deviation 43.0 fL (35.1-46.3)
[2024-11-11 07:23] VITALS: BP 130/85
[2024-11-11 07:23] LABS: Albumin, Blood 2.9 g/dL (3.4-5.0); Anion Gap 9 mmol/L (3-11); Blood Urea Nitrogen 33 mg/dL (8-24); CO2, Blood 23 mmol/L (21-32); Calcium, Blood 8.8 mg/dL (8.5-10.1); Chloride, Blood 105 mmol/L (98-108); Creatinine, Blood 1.01 mg/dL (0.60-1.20); Glucose, Blood 147 mg/dL (70-99); Magnesium, Blood 2.0 mg/dL (1.6-2.4); Phosphorus, Blood 3.9 mg/dL (2.5-4.9); Potassium, Blood 4.0 mmol/L (3.5-5.5); Sodium, Blood 133 mmol/L (136-145)
[2024-11-11] MEDS ORDERED: DOCUZEN 8.6-501 EACH PO (09:38)
[2024-11-11] MEDS ORDERED: JARDIANCE25 MG PO (09:38)
[2024-11-11] MEDS ORDERED: Acetaminophen325 M1 PO (09:38)
[2024-11-11] MEDS ORDERED: LANTUS SOL100 UNIT/1 SC (09:40)
[2024-11-11] MEDS ORDERED: HUMALOG JU100 UNIT/2 (09:41)
[2024-11-11] MEDS ORDERED: Lopressor 25 mg25 MG PO (09:41)
[2024-11-11] MEDS ORDERED: LISI20 PO (09:41)
[2024-11-11] MEDS ORDERED: OXYC10ER PO (09:42)
[2024-11-11] MEDS ORDERED: MIRALAX17 GM PO (09:43)
[2024-11-11] MEDS ORDERED: VISBIOME 112.51 EACH PO (09:44)
[2024-11-11] MEDS ORDERED: VANCOMYCIN HCL750 MG IV (09:44)
[2024-11-11] MEDS ORDERED: METF500 PO (11:03)
--- NOTE | 2024-11-11 13:30 | NUR ---
2850- THIS RN CALLED KEVIN FIELDS AT [facility] AND GAVE REPORT ON PT. ALL QUESTIONS ANSWERED. RN INFORMED INDUSTRIAL PAINTER THAT POWERGLIDE WAS INSERTED 11/05/24 AND THAT DRESSING NEEDED TO BE CHANGED ON THE 7TH DAY (TOMORROW) 11/12/24. INDUSTRIAL PAINTER VERBALIZED UNDERSTANDING.
--- NOTE | 2024-11-11 18:10 | NUR ---
1445- PT LEFT IN STABLE CONDITION WITH ALL BELONGINGS. SISTER TOOK ALL OF PT'S BELONGINGS. PT LEFT VIA TRANSPORT TO [facility].
== END 2024-11-11 14:54 | DRG 871 ==
LOC: ER 20:02 → MEDS 22:51 → ENPENDDIS 11-11 10:52 → MEDS 11-11 14:54
PROVIDERS: Internal Medicine; Nurse Practitioner Acute Care; Pharmacist; Student in an Organized Health Care Education/Training Program; ADMIT Student in an Organized Health Care Education/Training Program
PROC: 3E03329 Introduction of Other Anti-infective into Peripheral Vein, Percutaneous Approach (ICD-10-PCS; 2024-10-26)
PROC: B24BZZ4 Ultrasonography of Heart with Aorta, Transesophageal (ICD-10-PCS; 2024-11-02)
PROC: 0V9030Z Drainage of Prostate with Drainage Device, Percutaneous Approach (ICD-10-PCS; principal; 2024-11-04)
DX: A41.02 Sepsis due to Methicillin resistant Staphylococcus aureus (principal); G93.41 Metabolic encephalopathy; I50.32 Chronic diastolic (congestive) heart failure; N41.2 Abscess of prostate; E87.1 Hypo-osmolality and hyponatremia; L03.114 Cellulitis of left upper limb; L02.414 Cutaneous abscess of left upper limb; L02.838 Carbuncle of other sites; L02.828 Furuncle of other sites; I11.0 Hypertensive heart disease with heart failure; E11.65 Type 2 diabetes mellitus with hyperglycemia; I49.1 Atrial premature depolarization; Z88.6 Allergy status to analgesic agent
CPT/HCPCS: 36415; 49406; 71260; 72156; 72157; 72158; 74177; 80048; 80053; 80069; 80202; 81001; 81003; 82533; 82565; 82947; 83036; 83605; 83735; 83930; 83935; 84300; 84443; 84484; 85025; 85027; 85610; 87040; 87070; 87075; 87077; 87086; 87102; 87147; 87186; 87205; 93005; 93010; 93306; 93312; 93325; 93971; 96365; 96372; 96375; 96376; 99284-25; A9270; A9579; C1729; C1751; C1769; G0378; J0690; J0696; J1650; J1815; J1885; J2371; J2704; J3010; J3373; J7030; J7050; J7120; Q9967

== ENCOUNTER 2024-11-14 16:45 | Emergency (ER) | payer OTHER ==
[~2024-11-14] VITALS: Ht 172.7 cm; Wt 81.7 kg
[~2024-11-14 16:45] MED LIST: Acetaminophen325 M1 PO; Aspir 8181 MG PO; DOCUZEN 8.6-501 EACH PO; HUMALOG JU100 UNIT/2; JARDIANCE25 MG PO; LANTUS SOL100 UNIT/1 SC; LISI20 PO; Lopressor 25 mg25 MG PO; METF500 PO; MIRALAX17 GM PO; OXYC10ER PO; VANCOMYCIN HCL750 MG IV; VISBIOME 112.51 EACH PO
== END 2024-11-14 18:45 | disposition home or self-care (01) ==
LOC: ER 16:45
DX: Z45.2 Encounter for adjustment and management of vascular access device (principal); N41.2 Abscess of prostate; Z79.84 Long term (current) use of oral hypoglycemic drugs; Z79.82 Long term (current) use of aspirin; Z79.4 Long term (current) use of insulin; Z79.899 Other long term (current) drug therapy; Z88.6 Allergy status to analgesic agent
CPT/HCPCS: 96365; 99282-25; J3373; J7050

== ENCOUNTER → 2024-11-23 | Outpatient (CLI) | payer OTHER ==
[2024-11-23 17:41] LABS: Anion Gap 14 mmol/L (3-11); Blood Urea Nitrogen 40 mg/dL (8-24); CO2, Blood 19 mmol/L (21-32); Calcium, Blood 9.0 mg/dL (8.5-10.1); Chloride, Blood 107 mmol/L (98-108); Creatinine, Blood 1.02 mg/dL (0.60-1.20); Glucose, Blood 396 mg/dL (70-99); Potassium, Blood 4.5 mmol/L (3.5-5.5); Sodium, Blood 135 mmol/L (136-145); Vancomycin, Trough 18.6 ug/mL (5.0-10.0)
== END ==
LOC: LAB SHORT 17:01 → LAB 17:01
PROVIDERS: Nurse Practitioner Family
DX: A49.02 Methicillin resistant Staphylococcus aureus infection, unspecified site (principal)
CPT/HCPCS: 80048; 80202